=== PATIENT | female | born 1950 | race Asian ===

== ENCOUNTER 2022-11-16 21:00 | Emergency (ER) | payer OTHER ==
[~2022-11-16] VITALS: Ht 154.9 cm; Wt 54.4 kg
[2022-11-16 22:07] VITALS: TEMP 97.9
[2022-11-16] MEDS ORDERED: HYDROCODONE/APAP 5/325MG TABLET ONE ×2 (22:11→23:58)
[2022-11-16] MEDS ORDERED: HYDROCODONE/APAP 5/325MG TABLET PO ONE (22:30)
[2022-11-16] MEDS ORDERED: HYDR-3980 PO (23:48)
[2022-11-17] MEDS ORDERED: HYDROCODONE/APAP 5/325MG TABLET PO ONE
[2022-11-17] MEDS ORDERED: HYDR-3980 PO (00:09)
[2022-11-17 00:10] VITALS: BP 140/85; O2SAT 98
== END 2022-11-17 00:11 | disposition home or self-care (01) ==
LOC: ER 21:02
DX: S52.611A Displaced fracture of right ulna styloid process, initial encounter for closed fracture (principal); S52.591A Other fractures of lower end of right radius, initial encounter for closed fracture; I10 Essential (primary) hypertension; Z79.899 Other long term (current) drug therapy; W01.0XXA Fall on same level from slipping, tripping and stumbling without subsequent striking against object, initial encounter; Y93.89 Activity, other specified; Y92.89 Other specified places as the place of occurrence of the external cause; Y99.8 Other external cause status
CPT/HCPCS: 73110